=== PATIENT | male | born 1955 | race Two or more races ===

== ENCOUNTER 2025-01-27 15:48 | Emergency (ER) | payer MEDICARE, OTHER ==
[~2025-01-27] VITALS: Ht 165.1 cm; Wt 68.0 kg
[2025-01-27 16:02] VITALS: BP 134/79; TEMP 98.3
[2025-01-27] MEDS ORDERED: METH-647 PO (17:13)
[2025-01-27] MEDS ORDERED: IBUP-1490 PO (17:13)
[2025-01-27] MEDS ORDERED: IBUPROFEN 600 MG TABLET ONE (17:14)
[2025-01-27] MEDS ORDERED: CYCLOBENZAPRINE 10 MG TABLET ONE (17:14)
[2025-01-27] MEDS: CYCLOBENZAPRINE 10 MG TABLET PO ONE (17:17)
[2025-01-27] MEDS: IBUPROFEN 600 MG TABLET PO ONE (17:18)
[2025-01-27 17:51] VITALS: O2SAT 98
== END 2025-01-27 17:52 | disposition home or self-care (01) ==
LOC: ER 15:54
DX: M62.838 Other muscle spasm (principal); M25.511 Pain in right shoulder; I10 Essential (primary) hypertension; M19.011 Primary osteoarthritis, right shoulder; M47.812 Spondylosis without myelopathy or radiculopathy, cervical region
CPT/HCPCS: 72050-TC; 73030-TC